=== PATIENT | male | born 1955 | race Asian ===

== ENCOUNTER 2017-05-09 05:58 | Day surgery (SDC) | payer OTHER ==
[~2017-05-09] VITALS: Ht 177.8 cm; Wt 92.7 kg
[~2017-05-09 05:58] MED LIST: ATOR20TA86 PO; BENA1TAB17 PO; GLIM2 PO; LORA0.5T2 PO; METF500T7 PO; NIAC500T7 PO; RISP2 PO; SERT100T12 PO; TRIH5TAB2 PO
[2017-05-09] MEDS ORDERED: ALBUTEROL SULFATE 2.5 MG/0.5 ML NEB SOLUTION NEB ONE (05:59)
[2017-05-09] MEDS ORDERED: LIDOCAINE HCL 4% 50 ML SOLUTION TP ONE (05:59)
[2017-05-09] MEDS ORDERED: LIDOCAINE HCL 2% 30 ML JELLY TP ONE (05:59)
[2017-05-09] MEDS ORDERED: BENZOCAINE 20% 50 MCG/SPRAY 57 GM TP ONE (05:59)
[2017-05-09] MEDS ORDERED: SODIUM CHLORIDE 0.9% 1,000 ML IV ONE ×2 (06:27→06:30)
[2017-05-09 07:32] LABS: GLUCOSE,POINT OF CARE 152 MG/DL (70-110)
[2017-05-09] MEDS ORDERED: MIDAZOLAM HCL 2 MG/2 ML VIAL ONE (07:50)
[2017-05-09] MEDS ORDERED: FentaNYL CITRATE-PF 100 MCG/2 ML VIAL ONE (07:51)
[2017-05-09] MEDS ORDERED: MethylPREDNISolone SOD SUCC 125 MG/2 ML VIAL IVP ONE (09:00)
[2017-05-09] MEDS ORDERED: MethylPREDNISolone SOD SUCC 125 MG/2 ML VIAL ONE (09:24)
[2017-05-09] MEDS ORDERED: OXYGEN THERAPY IH SCH (20:00)
== END 2017-05-09 10:00 | disposition home or self-care (01) ==
LOC: SURGERY 05:58
PROVIDERS: ATTEND Internal Medicine Critical Care Medicine
DX: J38.4 Edema of larynx (principal); B37.0 Candidal stomatitis; E11.9 Type 2 diabetes mellitus without complications; M17.9 Osteoarthritis of knee, unspecified; M19.042 Primary osteoarthritis, left hand; M19.041 Primary osteoarthritis, right hand; D71 Functional disorders of polymorphonuclear neutrophils; F32.9 Major depressive disorder, single episode, unspecified; F41.9 Anxiety disorder, unspecified; Z72.89 Other problems related to lifestyle; Z87.891 Personal history of nicotine dependence; Z79.899 Other long term (current) drug therapy; Z98.890 Other specified postprocedural states
CPT/HCPCS: 31623; 31624; 71010; 82962; 87015 ×2; 87070; 87101; 87205; 87220; 88108; 88184; 88185; 88312; 93005; J2250; J2930; J3010; J7030